=== PATIENT | male | born 1975 | race Two or more races ===

== ENCOUNTER 2023-11-23 21:13 | Emergency (ER) | payer MEDICAID, OTHER ==
[~2023-11-23] VITALS: Ht 170.2 cm; Wt 81.4 kg
[2023-11-23 21:15] VITALS: BP 146/90; RESP 18; O2SAT 96
[2023-11-23 22:16] VITALS: PULSE 68
== END 2023-11-24 02:05 | disposition home or self-care (01) ==
LOC: ER 21:13
DX: M94.0 Chondrocostal junction syndrome [Tietze] (principal); R07.89 Other chest pain
CPT/HCPCS: 36415; 84484; 93005